=== PATIENT | female | born 1975 | race American Indian/Alaskan Native ===

== ENCOUNTER 2019-10-25 08:55 | Emergency (ER) | payer MEDICARE ==
[2019-10-25 09:15] VITALS: BP 179/90
== END 2019-10-25 13:38 | disposition left against medical advice (07) ==
LOC: ED 08:55
DX: M54.2 Cervicalgia (principal); Z53.21 Procedure and treatment not carried out due to patient leaving prior to being seen by health care provider

== ENCOUNTER 2021-12-12 20:51 | Inpatient (IN) | payer MEDICARE ==
[2021-12-12] MEDS ORDERED: PANTOPRAZOLE 40 MG INJ IV ONE (22:55)
[2021-12-12] MEDS ORDERED: METOCLOPRAMIDE 10 MG/2 ML INJ IV ONE (22:55)
[2021-12-12] MEDS ORDERED: LACTATED RINGERS 1,000 ML IV ONE (22:55)
--- NOTE | 2021-12-12 22:56 | Emergency Department Report ---
ED General Adult HPI - General Chief complaint: Hyperglycemia Stated complaint: NAUSEA/VOMITING PUI?: No Time Seen by Provider: 12/12/21 22:48 Source: patient, EMS ( EMS documentation not available at time of chart dictat ion ), RN notes reviewed Mode of arrival: Stretcher Limitations: Physical Limitation - History of Present Illness Initial comments: The patient was evaluated in the emergency department for symptoms described in the history of present illness. He/she was evaluated in the context of the global COVID-19 pandemic, which necessitated consideration that the patient might be at risk for infection with the virus that causes COVID-19. Institutional protocols and algorithms that pertain to the evaluation of pat ients at risk for COVID-19 are in a state of rapid change based on information released by regulatory bodies including the CDC and federal and state organizations. These policies and algorithms were followed during the patient's care in the emergency department. Please note that these policies, procedures and recommendations changed on a rapid basis. The patient is a 46-year-old female who reports that she is not , who reports a history of diabetes, hypertension, high cholesterol, recent hemoglobin A1c of 11, down from 13. Also reports 20 pound weight loss. Presents to the ER today with a complaint of feeling dehydrated, lethargic, and weak, associate with nausea and vomiting. Denies physical pain. No dysuria. No cough. Positive heartburn. Reports that she does not have a formal diagnosis of gastroparesis that she is aware of. Reports that she last felt like this a few years ago. Symptoms constant for the past 4 days -: Gradual, days(s) Consistency: constant Improves with: none Worsens with: eating - Related Data Allergies Allergy/AdvReac Type Severity Reaction Status Date / Time naproxen Allergy Vomiting Verified 10/25/19 09:09 pecan nut Allergy Swelling Verified 10/25/19 09:09 Penicillins Allergy Unknown Verified 10/25/19 09:09 ED Review of Systems ROS: Stated complaint: NAUSEA/VOMITING Other details as noted in HPI Constitutional: malaise, weakness Eyes: denies: eye discharge ENT: denies: epistaxis Respiratory: denies: cough Cardiovascular: denies: syncope Gastrointestinal: nausea, vomiting. denies: diarrhea Genitourinary: denies: dysuria Neurological: weakness Hematological/Lymphatic: denies: easy bleeding ED Past Medical Hx - Past Medical History Previous Medical History?: Yes Hx Hypertension: Yes Hx Diabetes: Yes Additional medical history: High Cholesterol - Surgical History Past Surgical History?: Yes Hx Cholecystectomy: Yes Additional Surgical History: x 2. oral surgery - Social History Smoking Status: Current Every Day Smoker Substance Use Type: Marijuana ED Physical Exam - General Limitations: Physical Limitation General appearance: alert, in no apparent distress - Head Head exam: Present: atraumatic, normocephalic - Eye Eye exam: Present: normal appearance, EOMI. Absent: nystagmus - ENT ENT exam: Present: normal exam, normal orophraynx, mucous membranes dry, normal external ear exam - Neck Neck exam: Present: normal inspection, full ROM. Absent: tenderness, m eningismus - Respiratory Respiratory exam: Present: normal lung sounds bilaterally, decreased breath sounds. Absent: respiratory distress, wheezes, rales, rhonchi, stridor - Cardiovascular Cardiovascular Exam: Present: normal rhythm, tachycardia, normal heart sounds. Absent: bradycardia, irregular rhythm, systolic murmur, diastolic murmur, rubs, gallop - GI/Abdominal GI/Abdominal exam: Present: soft. Absent: distended, tenderness, guarding, rebound, rigid, pulsatile mass - Extremities Exam Extremities exam: Present: normal inspection, full ROM, other (2+ pulses noted in the bilateral upper and lower extremities. There is no palpable cord. negative Homans sign. Muscular compartments are soft. The pelvis is stable.). Absent: pedal edema, calf tenderness - Back Exam Back exam: Present: normal inspection. Absent: tenderness, CVA tenderness (R), CVA tenderness (L), paraspinal tenderness, vertebral tenderness - Neurological Exam Neurological exam: Present: alert, oriented X3, other (No facial droop. Tongue midline. Extraocular movements intact bilaterally. Facial sensation intact to light touch in V1, V2, V3 distribution bilaterally. 5 and a 5 strength in 4 extremities. Sensation intact to light touch in 4 extremities.). Absent: motor sensory deficit - Psychiatric Psychiatric exam: Present: anxious - Skin Skin exam: Present: warm, dry, intact, normal color. Absent: rash ED Course Vital Signs 12/12/21 12/13/21 21:43 01:02 Temperature 98 F Pulse Rate 128 H Respiratory 20 Rate Blood Pressure 135/95 O2 Sat by Pulse 97 Oximetry O2 Sat by Pulse 99 Oximetry [ Digit-Finger] - Consultations Consultation #1: 12/13/21 01:02 Discussed history, physical, laboratory studies and clinical impression with critical care physician, Dr. Jiménez, who authorizes placement into the intensive care unit. His group will follow in consultation if required and the patient's anion gap not resolved. - Pulse Oximetry Interpretation Digit-Finger Initial Pulse Oximetry Readin O2 Sat by Pulse Oximetry: 99 Actions Taken: none ED Medical Decision Making - Lab Data Result diagrams: 12/12/21 23:03 12/12/21 23:03 Vital Signs 12/12/21 21:43 Temperature 98 F Pulse Rate 128 H Respiratory 20 Rate Blood Pressure 135/95 O2 Sat by Pulse 97 Oximetry Lab Results 12/12/21 12/12/21 12/12/21 Range/Units 23:03 23:03 23:03 WBC 16.1 H (4.5-11.0) K/mm3 RBC 5.38 H (3.65-5.03) M/mm3 Hgb 14.7 H (10.1-14.3) gm/dl Hct 43.5 H (30.3-42.9) % MCV 81 (79-97) fl MCH 27 L (28-32) pg MCHC 34 (30-34) % RDW 16.2 H (13.2-15.2) % Plt Count 703 H (140-440) K/mm3 Lymph % (Auto) 6.5 L (13.4-35.0) % [place] % (Auto) 6.1 (0.0-7.3) % Eos % (Auto) 0.1 (0.0-4.3) % Baso % (Auto) 0.5 (0.0-1.8) % Lymph # (Auto) 1.0 L (1.2-5.4) K/mm3 [place] # (Auto) 1.0 H (0.0-0.8) K/mm3 Eos # (Auto) 0.0 (0.0-0.4) K/mm3 Baso # (Auto) 0.1 (0.0-0.1) K/mm3 Seg Neutrophils % 86.8 H (40.0-70.0) % Seg Neutrophils # 14.0 H (1.8-7.7) K/mm3 VBG pH (7.320-7.420) Sodium 132 L (137-145) mmol/L Potassium 3.5 L (3.6-5.0) mmol/L Chloride 88.1 L (98-107) mmol/L Carbon Dioxide 17 L (22-30) mmol/L Anion Gap 30 mmol/L BUN 16 (7-17) mg/dL Creatinine 0.7 (0.6-1.2) mg/dL Estimated GFR > 60 ml/min BUN/Creatinine Ratio 23 % Glucose 446 H (65-100) mg/dL Calcium 10.1 (8.4-10.2) mg/dL Magnesium 2.40 H (1.7-2.3) mg/dL Total Bilirubin 0.50 (0.1-1.2) mg/dL AST 7 (5-40) units/L ALT 9 (7-56) units/L Alkaline Phosphatase 81 (35-129) units/L Total Creatine Kinase 25 L (30-135) units/L Troponin T < 0.010 (0.00-0.029) ng/mL Total Protein 9.2 H (6.3-8.2) g/dL Albumin 4.6 (3.9-5) g/dL Albumin/Globulin Ratio 1.0 % HCG, Quant (0-4) mIU/mL 12/12/21 12/12/21 Range/Units 23:03 23:03 WBC (4.5-11.0) K/mm3 RBC (3.65-5.03) M/mm3 Hgb (10.1-14.3) gm/dl Hct (30.3-42.9) % MCV (79-97) fl MCH (28-32) pg MCHC (30-34) % RDW (13.2-15.2) % Plt Count (140-440) K/mm3 Lymph % (Auto) (13.4-35.0) % [place] % (Auto) (0.0-7.3) % Eos % (Auto) (0.0-4.3) % Baso % (Auto) (0.0-1.8) % Lymph # (Auto) (1.2-5.4) K/mm3 [place] # (Auto) (0.0-0.8) K/mm3 Eos # (Auto) (0.0-0.4) K/mm3 Baso # (Auto) (0.0-0.1) K/mm3 Seg Neutrophils % (40.0-70.0) % Seg Neutrophils # (1.8-7.7) K/mm3 VBG pH 7.423 H (7.320-7.420) Sodium (137-145) mmol/L Potassium (3.6-5.0) mmol/L Chloride (98-107) mmol/L Carbon Dioxide (22-30) mmol/L Anion Gap mmol/L BUN (7-17) mg/dL Creatinine (0.6-1.2) mg/dL Estimated GFR ml/min BUN/Creatinine Ratio % Glucose (65-100) mg/dL Calcium (8.4-10.2) mg/dL Magnesium (1.7-2.3) mg/dL Total Bilirubin (0.1-1.2) mg/dL AST (5-40) units/L ALT (7-56) units/L Alkaline Phosphatase (35-129) units/L Total Creatine Kinase (30-135) units/L Troponin T (0.00-0.029) ng/mL Total Protein (6.3-8.2) g/dL Albumin (3.9-5) g/dL Albumin/Globulin Ratio % HCG, Quant < 2 (0-4) mIU/mL - EKG Data -: EKG Interpreted by Md EKG shows normal: sinus rhythm Rate: tachycardia - EKG Data 12/13/21 00:49 The EKG is interpreted at 12: 19 Sinus rhythm, tachycardia, rate 116 bpm. Normal axis, normal P wave axis, QTC 4 5 0 ms. This is an abnormal EKG. This is not a STEMI. - Radiology Data Radiology results: pending, report reviewed, image reviewed CHEST 1 VIEW INDICATION: n/v weak heartburn. COMPARISON: None. FINDINGS: Support devices: None. Heart: Normal. Lungs/Pleura: There is fullness in the left hilum. Lungs are clear. No pleural abnormality. IMPRESSION: 1. Fullness in the left hilum could be due to granulomatous lymph nodes but is nonspecific. CT would be useful to better characterize this. Signer Name: Aaron Olguin MD Signed: 12/13/2021 12:13 AM Workstation Name: [email or web address] ([email or web address] - Medical Decision Making Differential diagnosis, include but not limited to: GERD, gastritis, hiatal hernia, pneumonia, diabetic ketoacidosis, hyperosmolar state, gastroparesis, urinary tract infection Assessment and plan 46-year-old female with tachycardia, nausea, vomiting, cramping, malaise and fatigue, associated with hyperglycemia, and metabolic acidosis. Venous pH not a cidotic, however, given combination of tachycardia, clinical history and symptoms, metabolic acidosis and hyperglycemia, we will treat this patient as if she had diabetic ketoacidosis. Start IV fluids, Protonix, insulin push, insulin drip, obtain chest x-ray, urinalysis, and admit patient to the intensive care unit. Patient is agreeable to this plan of care. Have placed a page to critical care physician, Dr. Jiménez, awaiting callback. Hospital physician, Dr. Guidry to admit to [facility] Critical care attestation.: If time is entered above; I have spent that time in minutes in the direct care of this critically ill patient, excluding procedure time. ED Disposition Clinical Impression: Diabetic ketoacidosis Disposition: ADMITTED INPATIENT Is pt being admited?: Yes Does the pt Need Aspirin: No Condition: Serious Instructions: Diabetic Ketoacidosis (ED) Referrals: YFN REYES MD [Primary Care Provider] - 3-5 Days
[2021-12-12 23:32] LABS: Basophils # (Auto) 0.1 K/mm3 (0.0-0.1); Basophils % (Auto) 0.5 % (0.0-1.8); Eosinophils % (Auto) 0.1 % (0.0-4.3); Hematocrit 43.5 % (30.3-42.9); Hemoglobin 14.7 gm/dl (10.1-14.3); Lymphocytes % (Auto) 6.5 % (13.4-35.0); Mean Corpuscular HGB Conc 34 % (30-34); Mean Corpuscular Volume 81 fl (79-97); Monocytes % (Auto) 6.1 % (0.0-7.3); Platelet Count 703 K/mm3 (140-440); Red Blood Count 5.38 M/mm3 (3.65-5.03); Red Cell Distribution Width 16.2 % (13.2-15.2)
[2021-12-13 00:05] LABS: Alanine Aminotransferase 9 units/L (7-56); Albumin 4.6 g/dL (3.9-5); BUN/Creatinine Ratio 23; Blood Urea Nitrogen 16 mg/dL (7-17); Calcium 10.1 mg/dL (8.4-10.2); Hemolysis Index 17
[2021-12-13] MEDS ORDERED: INSULIN REGULAR, HUMAN 100 UNITS/1 ML IV ONE (00:39)
[2021-12-13] MEDS ORDERED: DEXTROSE 50% IN WATER (25GM) 50 ML SYRINGE IV PRN ×2 (00:41→02:05)
--- NOTE | 2021-12-13 01:17 | XRay Report ---
CHEST 1 VIEW INDICATION: n/v weak heartburn. COMPARISON: None. FINDINGS: Support devices: None. Heart: Normal. Lungs/Pleura: There is fullness in the left hilum. Lungs are clear. No pleural abnormality. IMPRESSION: 1. Fullness in the left hilum could be due to granulomatous lymph nodes but is nonspecific. CT would be useful to better characterize this. Signer Name: Aaron Olguin MD Signed: 12/13/2021 1:13 AM Workstation Name: [email or web address]
[2021-12-13 01:29] LABS: BUN/Creatinine Ratio 20; Blood Urea Nitrogen 16 mg/dL (7-17); Calcium 9.8 mg/dL (8.4-10.2); Hemolysis Index 481
[2021-12-13] MEDS ORDERED: HYDROmorphone 1 MG/1 ML INJ IV PRN (02:05)
[2021-12-13] MEDS ORDERED: ALBUTEROL 2.5 MG/3 ML NEBU IH PRN (02:05)
[2021-12-13] MEDS ORDERED: ACETAMINOPHEN 325 MG TAB PO PRN (02:05)
[2021-12-13] MEDS: INSULIN REGULAR, HUMAN 100 UNITS in SODIUM CHLORIDE 0.9% 99 ML IV SCH ×2 (02:10→21:55)
--- NOTE | 2021-12-13 02:12 | History and Physical Report ---
History of Present Illness Date of examination: 12/13/21 Date of admission: 12/13/21 Chief complaint: Hyperglycemia Nausea vomiting History of present illness: 46-year-old female with history of diabetes, hypertension, high cholesterol, recent hemoglobin A1c of 11, down from 13. Also reports 20 pound weight loss. Presents to the ER today with a complaint of feeling dehydrated, lethargic, and weak, associate with nausea and vomiting. Denies physical pain. No dysuria. No cough. Positive heartburn. Reports that she does not have a formal diagnosis of gastroparesis that she is aware of. Reports that she last felt like this a few years ago. In the emergency room patient is found to have blood glucose of 446 bicarb of 17 and anion gap of 30 BUN 16 creatinine 0.7, WBC of 16.1.'s were going to admit the patient to critical care unit we will put the patient on IV fluid insulin drip will consult critical care for evaluation Past History Past Medical History: diabetes, hypertension, hyperlipidemia Medications and Allergies Allergies Allergy/AdvReac Type Severity Reaction Status Date / Time naproxen Allergy Vomiting Verified 10/25/19 09:09 pecan nut Allergy Swelling Verified 10/25/19 09:09 Penicillins Allergy Unknown Verified 10/25/19 09:09 Active Meds: Active Medications Dextrose (Dextrose 50% In Water (25gm) 50 Ml Syringe) 0 ml IV Q30MIN PRN; Protocol PRN Reason: Hypoglycemia Insulin Human Regular 100 (units/ Sodium Chloride) 100 mls @ 1 mls/hr IV TITR DONA; Protocol Potassium Chloride/Dextrose/Sod Cl (D5w/0.45% Nacl/Kcl 20 Meq) 20 meq in 1,000 mls @ 125 mls/hr IV DIRECT DONA Sodium Chloride (Sodium Chloride 0.9% 10 Ml Flush Syringe) 10 ml IV PRN PRN PRN Reason: LINE FLUSH Review of Systems Constitutional: fatigue, weakness, malaise, lethargy Cardiovascular: lightheadedness Gastrointestinal: abdominal pain, nausea, vomiting Exam - Constitutional Vitals: Temp Pulse Resp BP Pulse Ox 98 F 128 H 20 135/95 99 12/12/21 21:43 12/12/21 21:43 12/12/21 21:43 12/12/21 21:43 12/13/21 01:32 General appearance: Present: mild distress, well-nourished - EENT Eyes: Present: PERRL ENT: hearing intact, clear oral mucosa - Neck Neck: Present: supple, normal ROM - Respiratory Respiratory effort: normal Respiratory: bilateral: diminished - Cardiovascular Heart Sounds: Present: S1 & S2. Absent: rub, click - Extremities Extremities: pulses symmetrical, No edema Peripheral Pulses: within normal limits - Abdominal General gastrointestinal: Present: soft, non-tender, non-distended, normal bowel sounds Female genitourinary: Present: normal - Integumentary Integumentary: Present: clear, warm, dry - Musculoskeletal Musculoskeletal: gait normal, strength equal bilaterally - Psychiatric Psychiatric: appropriate mood/affect, intact judgment & insight - Neurologic Neurologic: CNII-XII intact, moves all extremities HEART Score - HEART Score Troponin: Troponin T < 0.010 ng/mL (0.00-0.029) 12/12/21 23:03 Results - Labs CBC & Chem 7: 12/12/21 23:03 12/13/21 00:57 Labs: Laboratory Last Values WBC 16.1 K/mm3 (4.5-11.0) H 12/12/21 23:03 RBC 5.38 M/mm3 (3.65-5.03) H 12/12/21 23:03 Hgb 14.7 gm/dl (10.1-14.3) H 12/12/21 23:03 Hct 43.5 % (30.3-42.9) H 12/12/21 23:03 MCV 81 fl (79-97) 12/12/21 23:03 MCH 27 pg (28-32) L 12/12/21 23:03 MCHC 34 % (30-34) 12/12/21 23:03 RDW 16.2 % (13.2-15.2) H 12/12/21 23:03 Plt Count 703 K/mm3 (140-440) H 12/12/21 23:03 Lymph % (Auto) 6.5 % (13.4-35.0) L 12/12/21 23:03 Bartholomew % (Auto) 6.1 % (0.0-7.3) 12/12/21 23:03 Eos % (Auto) 0.1 % (0.0-4.3) 12/12/21 23:03 Baso % (Auto) 0.5 % (0.0-1.8) 12/12/21 23:03 Lymph # (Auto) 1.0 K/mm3 (1.2-5.4) L 12/12/21 23:03 Bartholomew # (Auto) 1.0 K/mm3 (0.0-0.8) H 12/12/21 23:03 Eos # (Auto) 0.0 K/mm3 (0.0-0.4) 12/12/21 23:03 Baso # (Auto) 0.1 K/mm3 (0.0-0.1) 12/12/21 23:03 Seg Neutrophils % 86.8 % (40.0-70.0) H 12/12/21 23:03 Seg Neutrophils # 14.0 K/mm3 (1.8-7.7) H 12/12/21 23:03 PT 14.3 Sec. (12.2-14.9) 12/13/21 00:15 INR 1.00 (0.87-1.13) 12/13/21 00:15 VBG pH 7.423 (7.320-7.420) H 12/12/21 23:03 Sodium 130 mmol/L (137-145) L 12/13/21 00:57 Potassium 4.0 mmol/L (3.6-5.0) 12/13/21 00:57 Chloride 88.4 mmol/L (98-107) L 12/13/21 00:57 Carbon Dioxide 15 mmol/L (22-30) L 12/13/21 00:57 Anion Gap 31 mmol/L 12/13/21 00:57 BUN 16 mg/dL (7-17) 12/13/21 00:57 Creatinine 0.8 mg/dL (0.6-1.2) 12/13/21 00:57 Estimated GFR > 60 ml/min 12/13/21 00:57 BUN/Creatinine Ratio 20 % 12/13/21 00:57 Glucose 430 mg/dL (65-100) H 12/13/21 00:57 POC Glucose 366 mg/dL (70-105) H 12/13/21 01:49 Calcium 9.8 mg/dL (8.4-10.2) 12/13/21 00:57 Phosphorus 3.80 mg/dL (2.5-4.5) 12/13/21 00:57 Magnesium 2.50 mg/dL (1.7-2.3) H 12/13/21 00:57 Total Bilirubin 0.50 mg/dL (0.1-1.2) 12/12/21 23:03 AST 7 units/L (5-40) 12/12/21 23:03 ALT 9 units/L (7-56) 12/12/21 23:03 Alkaline Phosphatase 81 units/L (35-129) 12/12/21 23:03 Total Creatine Kinase 25 units/L (30-135) L 12/12/21 23:03 Troponin T < 0.010 ng/mL (0.00-0.029) 12/12/21 23:03 Total Protein 9.2 g/dL (6.3-8.2) H 12/12/21 23:03 Albumin 4.6 g/dL (3.9-5) 12/12/21 23:03 Albumin/Globulin Ratio 1.0 % 12/12/21 23:03 HCG, Quant < 2 mIU/mL (0-4) 12/12/21 23:03 - Imaging and Cardiology Chest x-ray: report reviewed Assessment and Plan VTE prophylaxis?: Chemical Plan of care discussed with patient/family: Yes - Patient Problems (1) Diabetic ketoacidosis Current Visit: Yes Status: Acute Plan to address problem: Admit the patient to the ICU. NPO. IV fluid. Insulin drip as per protocol. We do the serial BMP. Will consult critical care evaluation (2) Leukocytosis Current Visit: Yes Status: Acute Plan to address problem: Rocephin 2 g IV daily prophylactically. Recheck CBC in the morning (3) Nausea & vomiting Current Visit: Yes Status: Acute Plan to address problem: NPO. IV fluid. Pepcid 20 mg IV every 12 hours. Zofran 4 mg IV every 6 hours as needed (4) Hypertension Current Visit: Yes Status: Acute Plan to address problem: Hydralazine 10 mg IV every 6 hours as needed. We continue the home medication (5) Hyperlipidemia Current Visit: Yes Status: Acute Plan to address problem: Stable. We will continue the home medication. Low-fat diet (6) DVT prophylaxis Current Visit: Yes Status: Acute Plan to address problem: Heparin 5000 units subcu every 8 hours for DVT prophylaxis. Pepcid 20 mg IV every 12 hours for GI prophylaxis. Patient is a full code
[2021-12-13] MEDS ORDERED: DEXTROSE 10% *Hypoglycemia IV PRN (02:14)
[2021-12-13] MEDS ORDERED: ROCURONIUM 50 MG/5 ML INJ IV ONE (02:42)
[2021-12-13] MEDS ORDERED: ETOMIDATE 20 MG/10 ML INJ IV ONE (02:42)
[2021-12-13 02:57] LABS: Blood Urea Nitrogen 13 mg/dL (7-17); Calcium 9.4 mg/dL (8.4-10.2); Hemolysis Index 4
[2021-12-13 03:00] LABS: BUN/Creatinine Ratio 19
[2021-12-13] MEDS ORDERED: INSULIN REGULAR, HUMAN 100 UNITS in SODIUM CHLORIDE 0.9% 99 ML IV SCH (03:00)
[2021-12-13] MEDS ORDERED: cefTRIAXone/NS 2 GM/100 ML 2 GM/100 ML BAG IV SCH (03:00)
[2021-12-13] MEDS ORDERED: dilTIAZem 25 MG/5 ML INJ IV ONE (03:22)
[2021-12-13] MEDS: D5W/0.45% NACL/KCL 20 MEQ 20 MEQ/1,000 ML BAG IV SCH ×2 (03:37→20:18)
[2021-12-13] MEDS: ONDANSETRON 4 MG/2 ML INJ IV PRN ×4 (04:39→21:42)
[2021-12-13 05:15] LABS: Blood Urea Nitrogen 13 mg/dL (7-17); Calcium 9.4 mg/dL (8.4-10.2); Hemolysis Index 9
[2021-12-13 05:18] LABS: BUN/Creatinine Ratio 22
[2021-12-13] MEDS: IPRATROPIUM/ALBUTEROL SULFATE 3 ML AMPUL.NEB IH SCH (07:29)
--- NOTE | 2021-12-13 09:32 | Electrocardiograph Report ---
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
[2021-12-13] MEDS: FAMOTIDINE 20 MG/2 ML INJ IV SCH ×2 (09:39→21:42)
[2021-12-13] MEDS: POTASSIUM CHLORIDE 10 MEQ 10 MEQ/100 ML BAG IV SCH ×4 (09:39→13:12)
[2021-12-13] MEDS: MORPHINE 2 MG/1 ML INJ IV PRN ×2 (09:40→13:14)
[2021-12-13] MEDS ORDERED: POTASSIUM PHOSPHATE 30 MMOL in SODIUM CHLORIDE 0.9% 500 ML 500 ML IV ONE (10:00)
[2021-12-13] MEDS ORDERED: HEPARIN 5,000 UNIT/1 ML VIAL SUB-Q SCH (10:00)
--- NOTE | 2021-12-13 10:58 | Event Note ---
<NYA ROSENBERG - Last Filed: 12/13/21 12:01> Date: 12/13/21 This is a 46-year-old female with DM, HTN, HLD who presented to emergency department on 12/12 with a reported 20 pound weight loss, dehydration, lethargy, weakness associated with nausea and vomiting and heartburn over the past 4 days. Patient presented with tachycardia and leukocytosis meeting SIRS criteria. Work-up in the emergency department revealed hyponatremia, hypokalemia, hypochloremia, metabolic acidosis, hyperglycemia, leukocytosis, hypophosphatemia, hemoconcentration and elevated anion gap. Patient was service with DKA initiated on insulin drip and [facility] was consulted. 12/13: Patient still persists with hyponatremia, anion gap metabolic acidosis, and hypokalemia. Her phosphorus are repleted yesterday and will be repleted today with K-Phos and her potassium will be repleted with potassium. Patient will be given additional 2 L LR bolus and as needed labetalol ordered for hypertension. Assessment and plan This is a 46-year-old female with DM, HTN, HLD admitted with DKA Neuro: Acute metabolic encephalopathy -Avoid delirium -Reorientation as needed -Maintain sleep-wake cycle -As needed analgesia Cardiac: ST, h/o HTN -Blood pressure monitor per protocol -As needed labetalol -Resume home antihypertensive regiment was obtained Respiratory: NAD -Pulmonary hygiene -Supplemental oxygen as needed -SPO2 monitoring GI: ? Gastroparesis -24 hours +20 -PPI -Add BR when not n.p.o. -As needed antiemetics : Hyponatremia, hypokalemia, hypochloremia, high anion gap metabolic acidosis, hypophosphatemia -Strict intake and output -Renally dose medications -Avoid nephrotoxic medications -Replete electrolytes -Trend BMP ID: SIRS -Presented with leukocytosis and tachycardia -CXR read with fullness in the left hilum could be due to granulomatous lymph nodes but is nonspecific -Monitor WBC and temperature curve -May dc abx today -currently on ceftriaxone -[facility] recommends : CT of chest can be obtained as outpatient, no evidence of acute lung disease and if abx therapy is for this, suggest stopping Endo: DKA, h/o DM -DKA protocol -Insulin drip -We will give 2 L LR today -IV fluids per protocol -Avoid hypoglycemia -Accu-Cheks per protocol -We will transition to long-acting insulin and SSI when appropriate Heme: Leukocytosis, ? Hemoconcentration, thrombocytosis -Trend CBC -Transfuse hemoglobin less than 7 -Monitor for signs of bleeding -SCDs to BLE while in bed -Lovenox subcu The high probability of a clinically significant, sudden or life threatening deterioration of the [endo] system(s) required my full and direct attention, intervention and personal management. The aggregate critical care time was [60] minutes. This time is in addition to time spent performing reported procedures but includes the following: [x] Data Review and interpretation [x] Patient assessment and monitoring of vital signs [x] Documentation [x] Medication orders and management <BETI LOCKWOOD - Last Filed: 12/14/21 07:17> I saw and evaluated the patient. I agree with the findings and the plan of care as documented in the Nurse Practitioner's~note, with the following corrections and additions.
[2021-12-13] MEDS ORDERED: LACTATED RINGERS 1,000 ML IV ONE (11:00)
[2021-12-13] MEDS ORDERED: LACTATED RINGERS 1000 ML IV SOLN IV SCH (11:00)
[2021-12-13 11:06] LABS: Blood Urea Nitrogen 10 mg/dL (7-17); Calcium 9.9 mg/dL (8.4-10.2); Hemolysis Index 2
[2021-12-13 11:07] LABS: BUN/Creatinine Ratio 20
--- NOTE | 2021-12-13 11:23 | Consultation ---
History of Present Illness - Reason for Consult Consult date: 12/13/21 DKA - History of Present Illness 46 y/o overweight female with known diabetes, admitted with DKA. Patient had been trying holostic treatment with Apple Cider Vinegar and coconut water. Per patient lost 20lbs in 2 months and dropped her A1c to 11 from 13. She had had nausea and vomiting of pure liquid for the last 4 days prior to admit and per patient, she would not have come yesterday if they did not make her. Remainder is negative. Past History Past Medical History: diabetes, hypertension, hyperlipidemia Medications and Allergies Allergies Allergy/AdvReac Type Severity Reaction Status Date / Time naproxen Allergy Vomiting Verified 10/25/19 09:09 pecan nut Allergy Swelling Verified 10/25/19 09:09 Penicillins Allergy Unknown Verified 10/25/19 09:09 Active Meds: Active Medications Acetaminophen (Acetaminophen 325 Mg Tab) 650 mg PO Q4H PRN PRN Reason: Pain MILD(1-3)/Fever >100.5/GASTELUM Albuterol (Albuterol 2.5 Mg/3 Ml Nebu) 2.5 mg IH Q3HRT PRN PRN Reason: Shortness Of Breath Albuterol/Ipratropium (Ipratropium/Albuterol Sulfate 3 Ml Ampul.Neb) 1 ampul IH Q6HRT [facility] Last Admin: 12/13/21 07:29 Dose: 1 ampul Dextrose (Dextrose 10% *Hypoglycemia) 0 ml IV PRN PRN PRN Reason: Hypoglycemia Enoxaparin Sodium (Enoxaparin 40 Mg/0.4 Ml Inj) 40 mg SUB-Q QDAY@2200 [facility]; Protocol Famotidine (Famotidine 20 Mg/2 Ml Inj) 20 mg IV BID [facility] Last Admin: 12/13/21 09:39 Dose: 20 mg Hydromorphone HCl (Hydromorphone 1 Mg/1 Ml Inj) 0.5 mg IV Q3H PRN PRN Reason: Pain , Severe (7-10) Insulin Human Regular 100 (units/ Sodium Chloride) 100 mls @ 1 mls/hr IV TITR [facility]; Protocol Last Titration: 12/13/21 11:10 Dose: 2.5 units/hr, 2.5 mls/hr Potassium Chloride/Dextrose/Sod Cl (D5w/0.45% Nacl/Kcl 20 Meq) 20 meq in 1,000 mls @ 125 mls/hr IV DIRECT [facility] Last Admin: 12/13/21 03:37 Dose: 125 mls/hr Ceftriaxone Sodium (Rocephin/Ns 2 Gm/100 Ml) 2 gm in 100 mls @ 200 mls/hr IV Q24H [facility]; Protocol Last Admin: 12/13/21 03:38 Dose: 200 mls/hr Potassium Phosphate 30 mmol/ (Sodium Chloride) 510 mls @ 85 mls/hr IV ONCE ONE Stop: 12/13/21 15:59 Last Admin: 12/13/21 10:45 Dose: 85 mls/hr Potassium Chloride (Kcl 10meq/100ml) 10 meq in 100 mls @ 100 mls/hr IV Q1H [facility] Stop: 12/13/21 13:59 Last Admin: 12/13/21 11:14 Dose: 100 mls/hr Lactated Ringer's (Lactated Ringers) 1,000 mls @ 999 mls/hr IV BOLUS ONE Stop: 12/13/21 12:00 Last Admin: 12/13/21 11:14 Dose: 999 mls/hr Labetalol HCl (Labetalol 20 Mg/4 Ml Inj) 10 mg IV Q4HR PRN PRN Reason: Hypertension Last Admin: 12/13/21 09:39 Dose: 10 mg Morphine Sulfate (Morphine 2 Mg/1 Ml Inj) 2 mg IV Q4H PRN PRN Reason: Pain, Moderate (4-6) Last Admin: 12/13/21 09:40 Dose: 2 mg Ondansetron HCl (Ondansetron 4 Mg/2 Ml Inj) 4 mg IV Q8H PRN PRN Reason: Nausea And Vomiting Last Admin: 12/13/21 09:39 Dose: 4 mg Sodium Chloride (Sodium Chloride 0.9% 10 Ml Flush Syringe) 10 ml IV BID [facility] Last Admin: 12/13/21 09:39 Dose: 10 ml Sodium Chloride (Sodium Chloride 0.9% 10 Ml Flush Syringe) 10 ml IV PRN PRN PRN Reason: LINE FLUSH Review of Systems All systems: negative Exam - Constitutional Vitals: Temp Pulse Resp BP Pulse Ox 98.1 F 108 H 14 187/106 97 12/13/21 09:00 12/13/21 09:39 12/13/21 08:01 12/13/21 09:39 12/13/21 08:01 General appearance: Present: no acute distress, well-nourished, other (over weight.) - EENT Eyes: Present: PERRL (wearing corrective lens), EOM intact ENT: hearing intact - Neck Neck: Present: supple, normal ROM - Respiratory Respiratory effort: normal Respiratory: bilateral: CTA - Cardiovascular Rhythm: regular Heart Sounds: Present: S1 & S2 - Abdominal General gastrointestinal: Present: soft, non-tender - Rectal Rectal Exam: deferred - Musculoskeletal Musculoskeletal: strength equal bilaterally Results - Labs CBC & Chem 7: 12/12/21 23:03 12/13/21 09:43 Labs: Abnormal lab results 12/12/21 12/12/21 12/12/21 Range/Units 23:03 23:03 23:03 WBC 16.1 H (4.5-11.0) K/mm3 RBC 5.38 H (3.65-5.03) M/mm3 Hgb 14.7 H (10.1-14.3) gm/dl Hct 43.5 H (30.3-42.9) % MCH 27 L (28-32) pg RDW 16.2 H (13.2-15.2) % Plt Count 703 H (140-440) K/mm3 Lymph % (Auto) 6.5 L (13.4-35.0) % Lymph # (Auto) 1.0 L (1.2-5.4) K/mm3 [place] # (Auto) 1.0 H (0.0-0.8) K/mm3 Seg Neutrophils % 86.8 H (40.0-70.0) % Seg Neutrophils # 14.0 H (1.8-7.7) K/mm3 VBG pH (7.320-7.420) Sodium 132 L (137-145) mmol/L Potassium 3.5 L (3.6-5.0) mmol/L Chloride 88.1 L (98-107) mmol/L Carbon Dioxide 17 L (22-30) mmol/L Creatinine (0.6-1.2) mg/dL Glucose 446 H (65-100) mg/dL POC Glucose (70-105) mg/dL Hemoglobin A1c (4-6) % Phosphorus (2.5-4.5) mg/dL Magnesium 2.40 H (1.7-2.3) mg/dL Total Creatine Kinase 25 L (30-135) units/L Total Protein 9.2 H (6.3-8.2) g/dL 12/12/21 12/12/21 12/13/21 Range/Units 23:03 23:03 00:57 WBC (4.5-11.0) K/mm3 RBC (3.65-5.03) M/mm3 Hgb (10.1-14.3) gm/dl Hct (30.3-42.9) % MCH (28-32) pg RDW (13.2-15.2) % Plt Count (140-440) K/mm3 Lymph % (Auto) (13.4-35.0) % Lymph # (Auto) (1.2-5.4) K/mm3 [place] # (Auto) (0.0-0.8) K/mm3 Seg Neutrophils % (40.0-70.0) % Seg Neutrophils # (1.8-7.7) K/mm3 VBG pH 7.423 H (7.320-7.420) Sodium (137-145) mmol/L Potassium (3.6-5.0) mmol/L Chloride (98-107) mmol/L Carbon Dioxide (22-30) mmol/L Creatinine (0.6-1.2) mg/dL Glucose (65-100) mg/dL POC Glucose (70-105) mg/dL Hemoglobin A1c 12.2 H (4-6) % Phosphorus (2.5-4.5) mg/dL Magnesium 2.50 H (1.7-2.3) mg/dL Total Creatine Kinase (30-135) units/L Total Protein (6.3-8.2) g/dL 12/13/21 12/13/21 12/13/21 Range/Units 00:57 01:49 02:27 WBC (4.5-11.0) K/mm3 RBC (3.65-5.03) M/mm3 Hgb (10.1-14.3) gm/dl Hct (30.3-42.9) % MCH (28-32) pg RDW (13.2-15.2) % Plt Count (140-440) K/mm3 Lymph % (Auto) (13.4-35.0) % Lymph # (Auto) (1.2-5.4) K/mm3 [place] # (Auto) (0.0-0.8) K/mm3 Seg Neutrophils % (40.0-70.0) % Seg Neutrophils # (1.8-7.7) K/mm3 VBG pH (7.320-7.420) Sodium 130 L 134 L (137-145) mmol/L Potassium 3.0 L D (3.6-5.0) mmol/L Chloride 88.4 L 93.9 L (98-107) mmol/L Carbon Dioxide 15 L 16 L (22-30) mmol/L Creatinine (0.6-1.2) mg/dL Glucose 430 H 286 H (65-100) mg/dL POC Glucose 366 H (70-105) mg/dL Hemoglobin A1c (4-6) % Phosphorus (2.5-4.5) mg/dL Magnesium (1.7-2.3) mg/dL Total Creatine Kinase (30-135) units/L Total Protein (6.3-8.2) g/dL 12/13/21 12/13/21 12/13/21 Range/Units 02:27 03:12 04:11 WBC (4.5-11.0) K/mm3 RBC (3.65-5.03) M/mm3 Hgb (10.1-14.3) gm/dl Hct (30.3-42.9) % MCH (28-32) pg RDW (13.2-15.2) % Plt Count (140-440) K/mm3 Lymph % (Auto) (13.4-35.0) % Lymph # (Auto) (1.2-5.4) K/mm3 [place] # (Auto) (0.0-0.8) K/mm3 Seg Neutrophils % (40.0-70.0) % Seg Neutrophils # (1.8-7.7) K/mm3 VBG pH (7.320-7.420) Sodium 136 L (137-145) mmol/L Potassium 3.2 L (3.6-5.0) mmol/L Chloride 97.6 L (98-107) mmol/L Carbon Dioxide 16 L (22-30) mmol/L Creatinine (0.6-1.2) mg/dL Glucose 189 H (65-100) mg/dL POC Glucose 201 H (70-105) mg/dL Hemoglobin A1c (4-6) % Phosphorus 2.10 L D (2.5-4.5) mg/dL Magnesium (1.7-2.3) mg/dL Total Creatine Kinase (30-135) units/L Total Protein (6.3-8.2) g/dL 12/13/21 12/13/21 12/13/21 Range/Units 04:31 05:34 06:32 WBC (4.5-11.0) K/mm3 RBC (3.65-5.03) M/mm3 Hgb (10.1-14.3) gm/dl Hct (30.3-42.9) % MCH (28-32) pg RDW (13.2-15.2) % Plt Count (140-440) K/mm3 Lymph % (Auto) (13.4-35.0) % Lymph # (Auto) (1.2-5.4) K/mm3 [place] # (Auto) (0.0-0.8) K/mm3 Seg Neutrophils % (40.0-70.0) % Seg Neutrophils # (1.8-7.7) K/mm3 VBG pH (7.320-7.420) Sodium (137-145) mmol/L Potassium (3.6-5.0) mmol/L Chloride (98-107) mmol/L Carbon Dioxide (22-30) mmol/L Creatinine (0.6-1.2) mg/dL Glucose (65-100) mg/dL POC Glucose 177 H 209 H 225 H (70-105) mg/dL Hemoglobin A1c (4-6) % Phosphorus (2.5-4.5) mg/dL Magnesium (1.7-2.3) mg/dL Total Creatine Kinase (30-135) units/L Total Protein (6.3-8.2) g/dL 12/13/21 12/13/21 12/13/21 Range/Units 07:58 09:04 09:43 WBC (4.5-11.0) K/mm3 RBC (3.65-5.03) M/mm3 Hgb (10.1-14.3) gm/dl Hct (30.3-42.9) % MCH (28-32) pg RDW (13.2-15.2) % Plt Count (140-440) K/mm3 Lymph % (Auto) (13.4-35.0) % Lymph # (Auto) (1.2-5.4) K/mm3 [place] # (Auto) (0.0-0.8) K/mm3 Seg Neutrophils % (40.0-70.0) % Seg Neutrophils # (1.8-7.7) K/mm3 VBG pH (7.320-7.420) Sodium (137-145) mmol/L Potassium (3.6-5.0) mmol/L Chloride 96.7 L (98-107) mmol/L Carbon Dioxide (22-30) mmol/L Creatinine 0.5 L (0.6-1.2) mg/dL Glucose 186 H (65-100) mg/dL POC Glucose 214 H 198 H (70-105) mg/dL Hemoglobin A1c (4-6) % Phosphorus (2.5-4.5) mg/dL Magnesium (1.7-2.3) mg/dL Total Creatine Kinase (30-135) units/L Total Protein (6.3-8.2) g/dL 12/13/21 12/13/21 Range/Units 10:02 11:10 WBC (4.5-11.0) K/mm3 RBC (3.65-5.03) M/mm3 Hgb (10.1-14.3) gm/dl Hct (30.3-42.9) % MCH (28-32) pg RDW (13.2-15.2) % Plt Count (140-440) K/mm3 Lymph % (Auto) (13.4-35.0) % Lymph # (Auto) (1.2-5.4) K/mm3 [place] # (Auto) (0.0-0.8) K/mm3 Seg Neutrophils % (40.0-70.0) % Seg Neutrophils # (1.8-7.7) K/mm3 VBG pH (7.320-7.420) Sodium (137-145) mmol/L Potassium (3.6-5.0) mmol/L Chloride (98-107) mmol/L Carbon Dioxide (22-30) mmol/L Creatinine (0.6-1.2) mg/dL Glucose (65-100) mg/dL POC Glucose 193 H 171 H (70-105) mg/dL Hemoglobin A1c (4-6) % Phosphorus (2.5-4.5) mg/dL Magnesium (1.7-2.3) mg/dL Total Creatine Kinase (30-135) units/L Total Protein (6.3-8.2) g/dL - Imaging and Cardiology Chest x-ray: image reviewed (left hilar fullness, but otherwise clear) Assessment and Plan 46 y/o female with DKA and abnormal CXR 1. Continue insulin drip until Anion Gap closes. Currently 18. Hopeful at next check, she will be within range to eat 2. Once gap closed, calculate long acting insulin requirements, vs weight based therapy and administer, then turn drip off 2 hours post administration of insulin 3. Continue volume resuscitation as patient is dehydrated 4. long discussion at bedside about need for medical therapy as opposed to solely holistic care. patient in agreement 5. CT of chest can be obtained as outpatient, no evidence of acute lung disease and if abx therapy is for this, suggest stopping Will continue to follow CCT 31 minutes.
[2021-12-13 16:56] LABS: Blood Urea Nitrogen 6 mg/dL (7-17); Hemolysis Index 3
[2021-12-13 17:01] LABS: BUN/Creatinine Ratio 12
[2021-12-13] MEDS: ENOXAPARIN 40 MG/0.4 ML INJ SUB-Q SCH (21:43)
[2021-12-13 23:48] LABS: BUN/Creatinine Ratio 15; Blood Urea Nitrogen 6 mg/dL (7-17); Calcium 8.5 mg/dL (8.4-10.2); Hemolysis Index 10
[2021-12-14 00:54] LABS: Bacteria,Urine 1+ /HPF (Negative); Bilirubin,Urine NEG (Negative); Blood,Urine SM (Negative); Color,Urine Yellow (Yellow); Mucus,Urine 1+ /HPF; Urobilinogen,Urine < 2.0 mg/dL (<2.0)
[2021-12-14 03:03] LABS: Blood Urea Nitrogen 5 mg/dL (7-17); Calcium 8.4 mg/dL (8.4-10.2); Hemolysis Index 6
[2021-12-14 03:13] LABS: BUN/Creatinine Ratio 10
[2021-12-14] MEDS: D5W/0.45% NACL/KCL 20 MEQ 20 MEQ/1,000 ML BAG IV SCH (04:17)
[2021-12-14] MEDS: IPRATROPIUM/ALBUTEROL SULFATE 3 ML AMPUL.NEB IH SCH (07:13)
[2021-12-14] MEDS ORDERED: INSULIN LISPRO 100 UNIT/ML SUB-Q SCH (08:00)
[2021-12-14] MEDS ORDERED: DEXTROSE 50% IN WATER (25GM) 50 ML SYRINGE IV PRN (08:30)
--- NOTE | 2021-12-14 08:36 | Progress Note ---
<NYA ROSENBERG - Last Filed: 12/14/21 11:01> Assessment and Plan Assessment and plan: Assessment and plan This is a 46-year-old female with DM, HTN, HLD admitted with DKA Neuro: Acute metabolic encephalopathy (resolved) -Avoid delirium -Reorientation as needed -Maintain sleep-wake cycle -As needed analgesia Cardiac: h/o HTN -Blood pressure monitor per protocol -As needed labetalol -Resume home antihypertensive regiment was obtained Respiratory: NAD -Pulmonary hygiene -Supplemental oxygen as needed -SPO2 monitoring GI: Obesity -24 hours +1079 -PPI -BR: senna -As needed antiemetics : Hypokalemia -Strict intake and output -Renally dose medications -Avoid nephrotoxic medications -Replete electrolytes -Trend BMP ID: SIRS -Presented with leukocytosis and tachycardia -CXR read with fullness in the left hilum could be due to granulomatous lymph nodes but is nonspecific -Monitor WBC and temperature curve -[facility] recommends : CT of chest can be obtained as outpatient, no evidence of acute lung disease Endo: s/p DKA, h/o DM -s/p Insulin drip -SSI -Long acting insulin (titrate as needed) -Avoid hypoglycemia -Accu-Cheks ACHS Heme: Leukocytosis, ? Hemoconcentration, thrombocytosis -Trend CBC -Transfuse hemoglobin less than 7 -Monitor for signs of bleeding -SCDs to BLE while in bed -Lovenox subcu The high probability of a clinically significant, sudden or life threatening deterioration of the [endo] system(s) required my full and direct attention, intervention and personal management. The aggregate critical care time was [60] minutes. This time is in addition to time spent performing reported procedures but includes the following: [x] Data Review and interpretation [x] Patient assessment and monitoring of vital signs [x] Documentation [x] Medication orders and management Disposition Plan: transfer to floor Total Time Spent with Patient (Minutes): 60 History Interval history: This is a 46-year-old female with DM, HTN, HLD who presented to emergency department on 12/12 with a reported 20 pound weight loss, dehydration, lethargy, weakness associated with nausea and vomiting and heartburn over the past 4 days. Patient presented with tachycardia and leukocytosis meeting SIRS criteria. Work-up in the emergency department revealed hyponatremia, hypokalemia, hypochloremia, metabolic acidosis, hyperglycemia, leukocytosis, hypophosphatemia, hemoconcentration and elevated anion gap. Patient was service with DKA initiated on insulin drip and CCM was consulted. 12/13: Patient still persists with hyponatremia, anion gap metabolic acidosis, and hypokalemia. Her phosphorus are repleted yesterday and will be repleted today with K-Phos and her potassium will be repleted with potassium. Patient will be given additional 2 L LR bolus and as needed labetalol ordered for hypertension. 12/14: AG closed, transitioned to SSI and long acting insulin. CC diet. Transfer to floor. Replete K. Likely DC in the AM Hospitalist Physical - Constitutional Vitals: Temp Pulse Resp BP Pulse Ox 98.2 F 76 10 L 121/57 98 12/14/21 04:00 12/14/21 06:00 12/14/21 06:00 12/14/21 06:00 12/14/21 06:00 General appearance: Present: no acute distress, well-nourished, other (over weight.) - EENT Eyes: Present: PERRL, EOM intact ENT: clear oral mucosa, dentition normal - Neck Neck: Present: normal ROM - Respiratory Respiratory effort: normal Respiratory: bilateral: CTA - Cardiovascular Rhythm: regular Heart Sounds: Present: S1 & S2. Absent: systolic murmur, diastolic murmur - Extremities Extremities: no ischemia, pulses intact, pulses symmetrical, No edema, normal temperature, normal color, Full ROM Peripheral Pulses: within normal limits - Abdominal General gastrointestinal: soft, non-tender, non-distended, normal bowel sounds - Integumentary Integumentary: Present: warm, dry - Psychiatric Psychiatric: cooperative - Neurologic Neurologic: CNII-XII intact, no focal deficits, moves all extremities - Allied Health Allied health notes reviewed: nursing HEART Score - HEART Score Troponin: Troponin T < 0.010 ng/mL (0.00-0.029) 12/12/21 23:03 Results - Labs CBC & Chem 7: 12/12/21 23:03 12/14/21 02:29 Labs: Laboratory Last Values WBC 16.1 K/mm3 (4.5-11.0) H 12/12/21 23:03 RBC 5.38 M/mm3 (3.65-5.03) H 12/12/21 23:03 Hgb 14.7 gm/dl (10.1-14.3) H 12/12/21 23:03 Hct 43.5 % (30.3-42.9) H 12/12/21 23:03 MCV 81 fl (79-97) 12/12/21 23:03 MCH 27 pg (28-32) L 12/12/21 23:03 MCHC 34 % (30-34) 12/12/21 23:03 RDW 16.2 % (13.2-15.2) H 12/12/21 23:03 Plt Count 703 K/mm3 (140-440) H 12/12/21 23:03 Lymph % (Auto) 6.5 % (13.4-35.0) L 12/12/21 23:03 [place] % (Auto) 6.1 % (0.0-7.3) 12/12/21 23:03 Eos % (Auto) 0.1 % (0.0-4.3) 12/12/21 23:03 Baso % (Auto) 0.5 % (0.0-1.8) 12/12/21 23:03 Lymph # (Auto) 1.0 K/mm3 (1.2-5.4) L 12/12/21 23:03 [place] # (Auto) 1.0 K/mm3 (0.0-0.8) H 12/12/21 23:03 Eos # (Auto) 0.0 K/mm3 (0.0-0.4) 12/12/21 23:03 Baso # (Auto) 0.1 K/mm3 (0.0-0.1) 12/12/21 23:03 Seg Neutrophils % 86.8 % (40.0-70.0) H 12/12/21 23:03 Seg Neutrophils # 14.0 K/mm3 (1.8-7.7) H 12/12/21 23:03 PT 14.3 Sec. (12.2-14.9) 12/13/21 00:15 INR 1.00 (0.87-1.13) 12/13/21 00:15 VBG pH 7.423 (7.320-7.420) H 12/12/21 23:03 Sodium 135 mmol/L (137-145) L 12/14/21 02:29 Potassium 3.2 mmol/L (3.6-5.0) L 12/14/21 02:29 Chloride 99.9 mmol/L (98-107) 12/14/21 02:29 Carbon Dioxide 22 mmol/L (22-30) 12/14/21 02:29 Anion Gap 16 mmol/L 12/14/21 02:29 BUN 5 mg/dL (7-17) L 12/14/21 02:29 Creatinine 0.5 mg/dL (0.6-1.2) L 12/14/21 02:29 Estimated GFR > 60 ml/min 12/14/21 02:29 BUN/Creatinine Ratio 10 % 12/14/21 02:29 Glucose 112 mg/dL (65-100) H 12/14/21 02:29 POC Glucose 124 mg/dL (70-105) H 12/14/21 08:27 Hemoglobin A1c 12.2 % (4-6) H 12/12/21 23:03 Calcium 8.4 mg/dL (8.4-10.2) 12/14/21 02:29 Phosphorus 2.10 mg/dL (2.5-4.5) L D 12/13/21 02: Magnesium 2.10 mg/dL (1.7-2.3) 12/13/21 02: Total Bilirubin 0.50 mg/dL (0.1-1.2) 12/12/21 23:03 AST 7 units/L (5-40) 12/12/21 23:03 ALT 9 units/L (7-56) 12/12/21 23:03 Alkaline Phosphatase 81 units/L (35-129) 12/12/21 23:03 Total Creatine Kinase 25 units/L (30-135) L 12/12/21 23:03 Troponin T < 0.010 ng/mL (0.00-0.029) 12/12/21 23:03 Total Protein 9.2 g/dL (6.3-8.2) H 12/12/21 23:03 Albumin 4.6 g/dL (3.9-5) 12/12/21 23:03 Albumin/Globulin Ratio 1.0 % 12/12/21 23:03 HCG, Quant < 2 mIU/mL (0-4) 12/12/21 23:03 Urine Color Yellow (Yellow) 12/14/21 00:20 Urine Turbidity Slightly-cloudy (Clear) 12/14/21 00:20 Urine pH 6.0 (5.0-7.0) 12/14/21 00:20 Ur Specific [place] 1.014 (1.003-1.030) 12/14/21 00:20 Urine Protein 30 mg/dl mg/dL (Negative) 12/14/21 00:20 Urine Glucose (UA) 50 mg/dL (Negative) 12/14/21 00:20 Urine Ketones 20 mg/dL (Negative) 12/14/21 00:20 Urine Blood Sm (Negative) 12/14/21 00:20 Urine Nitrite Neg (Negative) 12/14/21 00:20 Urine Bilirubin Neg (Negative) 12/14/21 00:20 Urine Urobilinogen < 2.0 mg/dL (<2.0) 12/14/21 00:20 Ur Leukocyte Esterase Neg (Negative) 12/14/21 00:20 Urine WBC (Auto) 2.0 /HPF (0.0-6.0) 12/14/21 00:20 Urine RBC (Auto) 6.0 /HPF (0.0-6.0) 12/14/21 00:20 U Epithel Cells (Auto) 6.0 /HPF (0-13.0) 12/14/21 00:20 Urine Bacteria (Auto) 1+ /HPF (Negative) 12/14/21 00:20 Urine Mucus 1+ /HPF 12/14/21 00:20 Urine Yeast (Budding) Few /HPF 12/14/21 00:20 Nguyen/IV: Voiding Method Toilet Active Medications - Current Medications Current Medications: Generic Name Dose Route Start Last Admin Trade Name Freq PRN Reason Stop Dose Admin Acetaminophen 650 mg 12/13/21 02:05 Acetaminophen 325 Mg Tab PO Q4H PRN Pain MILD(1-3)/Fever >100.5/GASTELUM Albuterol 2.5 mg 12/13/21 02:05 Albuterol 2.5 Mg/3 Ml Nebu IH Q3HRT PRN Shortness Of Breath Dextrose 0 ml 12/13/21 02:14 Dextrose 10% *Hypoglycemia IV PRN PRN Hypoglycemia Dextrose 50 ml 12/14/21 08:30 Dextrose 50% In Water (25gm) 50 Ml Syringe IV Q30MIN PRN Hypoglycemia Protocol Enoxaparin Sodium 40 mg 12/13/21 22:00 12/13/21 21:43 Enoxaparin 40 Mg/0.4 Ml Inj SUB-Q 40 mg QDAY@2200 DONA Administration Protocol Famotidine 20 mg 12/14/21 10:00 Famotidine 20 Mg Tab PO BID DONA Insulin Glargine 20 units 12/14/21 22:00 Insulin Glargine 100 Units/Ml SUB-Q QHS DONA Insulin Glargine 10 units 12/14/21 08:30 Insulin Glargine 100 Units/Ml SUB-Q 12/14/21 08:31 ONCE ONE Insulin Human Lispro 0 unit 12/14/21 08:00 Insulin Lispro 100 Unit/Ml SUB-Q Q6HR [facility] Protocol Ondansetron HCl 4 mg 12/13/21 02:05 12/13/21 21:42 Ondansetron 4 Mg/2 Ml Inj IV 4 mg Q8H PRN Administration Nausea And Vomiting Sodium Chloride 10 ml 12/13/21 10:00 12/13/21 21:44 Sodium Chloride 0.9% 10 Ml Flush Syringe IV 10 ml BID DONA Administration Sodium Chloride 10 ml 12/13/21 02:05 Sodium Chloride 0.9% 10 Ml Flush Syringe IV PRN PRN LINE FLUSH <BETI LOCKWOOD - Last Filed: 12/14/21 15:46> Assessment and Plan Assessment and plan: I saw and evaluated the patient. I agree with the findings and the plan of care as documented in the Nurse Practitioner's~note, with the following corrections and additions. Hospitalist Physical - Constitutional Vitals: Temp Pulse Resp BP Pulse Ox 97.9 F 93 H 20 132/63 99 12/14/21 12:08 12/14/21 12:08 12/14/21 12:33 12/14/21 12:08 12/14/21 12:08 HEART Score - HEART Score Troponin: Troponin T < 0.010 ng/mL (0.00-0.029) 12/12/21 23:03 Results - Labs CBC & Chem 7: 12/14/21 11:19 12/14/21 10:14 Labs: Laboratory Last Values WBC 13.2 K/mm3 (4.5-11.0) H 12/14/21 11:19 RBC 4.81 M/mm3 (3.65-5.03) 12/14/21 11:19 Hgb 12.2 gm/dl (10.1-14.3) 12/14/21 11:19 Hct 39.0 % (30.3-42.9) 12/14/21 11:19 MCV 81 fl (79-97) 12/14/21 11:19 MCH 25 pg (28-32) L 12/14/21 11:19 MCHC 31 % (30-34) 12/14/21 11:19 RDW 16.2 % (13.2-15.2) H 12/14/21 11:19 Plt Count 595 K/mm3 (140-440) H 12/14/21 11:19 Lymph % (Auto) Job Coach/Job Developer 12/14/21 11:19 [place] % (Auto) Job Coach/Job Developer 12/14/21 11:19 Eos % (Auto) Job Coach/Job Developer 12/14/21 11:19 Baso % (Auto) Job Coach/Job Developer 12/14/21 11:19 Lymph # (Auto) Job Coach/Job Developer 12/14/21 11:19 [place] # (Auto) Job Coach/Job Developer 12/14/21 11:19 Eos # (Auto) Job Coach/Job Developer 12/14/21 11:19 Baso # (Auto) Job Coach/Job Developer 12/14/21 11:19 Add Manual Diff Complete 12/14/21 11:19 Total Counted 100 12/14/21 11:19 Seg Neutrophils % Job Coach/Job Developer 12/14/21 11:19 Seg Neuts % (Manual) 75.0 % (40.0-70.0) H 12/14/21 11:19 Band Neutrophils % 1.0 % 12/14/21 11:19 Lymphocytes % (Manual) 14.0 % (13.4-35.0) 12/14/21 11:19 Reactive Lymphs % (Man) 0 % 12/14/21 11:19 Monocytes % (Manual) 9.0 % (0.0-7.3) H 12/14/21 11:19 Eosinophils % (Manual) 1.0 % (0.0-4.3) 12/14/21 11:19 Basophils % (Manual) 0 % (0.0-1.8) 12/14/21 11:19 Metamyelocytes % 0 % 12/14/21 11:19 Myelocytes % 0 % 12/14/21 11:19 Promyelocytes % 0 % 12/14/21 11:19 Blast Cells % 0 % 12/14/21 11:19 Nucleated RBC % Not Reportable 12/14/21 11:19 Seg Neutrophils # Job Coach/Job Developer 12/14/21 11:19 Seg Neutrophils # Man 9.9 K/mm3 (1.8-7.7) H 12/14/21 11:19 Band Neutrophils # 0.1 K/mm3 12/14/21 11:19 Lymphocytes # (Manual) 1.8 K/mm3 (1.2-5.4) 12/14/21 11:19 Abs React Lymphs (Man) 0.0 K/mm3 12/14/21 11:19 Monocytes # (Manual) 1.2 K/mm3 (0.0-0.8) H 12/14/21 11:19 Eosinophils # (Manual) 0.1 K/mm3 (0.0-0.4) 12/14/21 11:19 Basophils # (Manual) 0.0 K/mm3 (0.0-0.1) 12/14/21 11:19 Metamyelocytes # 0.0 K/mm3 12/14/21 11:19 Myelocytes # 0.0 K/mm3 12/14/21 11:19 Promyelocytes # 0.0 K/mm3 12/14/21 11:19 Blast Cells # 0.0 K/mm3 12/14/21 11:19 WBC Morphology Not Reportable 12/14/21 11:19 Hypersegmented Neuts Not Reportable 12/14/21 11:19 Hyposegmented Neuts Not Reportable 12/14/21 11:19 Hypogranular Neuts Not Reportable 12/14/21 11:19 Smudge Cells Not Reportable 12/14/21 11:19 Toxic Granulation Not Reportable 12/14/21 11:19 Toxic Vacuolation Not Reportable 12/14/21 11:19 Dohle Bodies Not Reportable 12/14/21 11:19 Pelger-Huet Anomaly Not Reportable 12/14/21 11:19 Sandra Rods Not Reportable 12/14/21 11:19 Platelet Estimate Consistent w auto 12/14/21 11:19 Clumped Platelets Not Reportable 12/14/21 11:19 Plt Clumps, EDTA Not Reportable 12/14/21 11:19 Large Platelets Not Reportable 12/14/21 11:19 Giant Platelets Not Reportable 12/14/21 11:19 Platelet Satelliting Not Reportable 12/14/21 11:19 Plt Morphology Comment Not Reportable 12/14/21 11:19 RBC Morphology Not Reportable 12/14/21 11:19 Dimorphic RBCs Not Reportable 12/14/21 11:19 Polychromasia Not Reportable 12/14/21 11:19 Hypochromasia Few 12/14/21 11:19 Poikilocytosis Not Reportable 12/14/21 11:19 Anisocytosis Not Reportable 12/14/21 11:19 Microcytosis Not Reportable 12/14/21 11:19 Macrocytosis Not Reportable 12/14/21 11:19 Spherocytes Not Reportable 12/14/21 11:19 Pappenheimer Bodies Not Reportable 12/14/21 11:19 Sickle Cells Not Reportable 12/14/21 11:19 Target Cells Not Reportable 12/14/21 11:19 Tear Drop Cells Not Reportable 12/14/21 11:19 Ovalocytes Not Reportable 12/14/21 11:19 Helmet Cells Not Reportable 12/14/21 11:19 [place] Bodies Not Reportable 12/14/21 11:19 [place] Rings Not Reportable 12/14/21 11:19 [place] Cells Not Reportable 12/14/21 11:19 Bite Cells Not Reportable 12/14/21 11:19 Crenated Cell Not Reportable 12/14/21 11:19 Elliptocytes Not Reportable 12/14/21 11:19 Acanthocytes (Spur) Not Reportable 12/14/21 11:19 Rouleaux Not Reportable 12/14/21 11:19 Hemoglobin C Crystals Not Reportable 12/14/21 11:19 Schistocytes Not Reportable 12/14/21 11:19 Malaria parasites Not Reportable 12/14/21 11:19 Anup Bodies Not Reportable 12/14/21 11:19 Hem Pathologist Commnt No 12/14/21 11:19 PT 14.3 Sec. (12.2-14.9) 12/13/21 00:15 INR 1.00 (0.87-1.13) 12/13/21 00:15 VBG pH 7.423 (7.320-7.420) H 12/12/21 23:03 Sodium 136 mmol/L (137-145) L 12/14/21 10:14 Potassium 3.1 mmol/L (3.6-5.0) L 12/14/21 10:14 Chloride 98.1 mmol/L (98-107) 12/14/21 10:14 Carbon Dioxide 22 mmol/L (22-30) 12/14/21 10:14 Anion Gap 19 mmol/L 12/14/21 10:14 BUN 5 mg/dL (7-17) L 12/14/21 10:14 Creatinine 0.5 mg/dL (0.6-1.2) L 12/14/21 10:14 Estimated GFR > 60 ml/min 12/14/21 10:14 BUN/Creatinine Ratio 10 % 12/14/21 10:14 Glucose 218 mg/dL (65-100) H 12/14/21 10:14 POC Glucose 259 mg/dL (70-105) H 12/14/21 11:28 Hemoglobin A1c 12.2 % (4-6) H 12/12/21 23:03 Calcium 9.0 mg/dL (8.4-10.2) 12/14/21 10:14 Phosphorus 2.10 mg/dL (2.5-4.5) L D 12/13/21 02:27 Magnesium 1.70 mg/dL (1.7-2.3) 12/14/21 10:14 Total Bilirubin 0.50 mg/dL (0.1-1.2) 12/12/21 23:03 AST 7 units/L (5-40) 12/12/21 23:03 ALT 9 units/L (7-56) 12/12/21 23:03 Alkaline Phosphatase 81 units/L (35-129) 12/12/21 23:03 Total Creatine Kinase 25 units/L (30-135) L 12/12/21 23:03 Troponin T < 0.010 ng/mL (0.00-0.029) 12/12/21 23:03 Total Protein 9.2 g/dL (6.3-8.2) H 12/12/21 23:03 Albumin 4.6 g/dL (3.9-5) 12/12/21 23:03 Albumin/Globulin Ratio 1.0 % 12/12/21 23:03 HCG, Quant < 2 mIU/mL (0-4) 12/12/21 23:03 Urine Color Yellow (Yellow) 12/14/21 00:20 Urine Turbidity Slightly-cloudy (Clear) 12/14/21 00:20 Urine pH 6.0 (5.0-7.0) 12/14/21 00:20 Ur Specific [place] 1.014 (1.003-1.030) 12/14/21 00:20 Urine Protein 30 mg/dl mg/dL (Negative) 12/14/21 00:20 Urine Glucose (UA) 50 mg/dL (Negative) 12/14/21 00:20 Urine Ketones 20 mg/dL (Negative) 12/14/21 00:20 Urine Blood Sm (Negative) 12/14/21 00:20 Urine Nitrite Neg (Negative) 12/14/21 00:20 Urine Bilirubin Neg (Negative) 12/14/21 00:20 Urine Urobilinogen < 2.0 mg/dL (<2.0) 12/14/21 00:20 Ur Leukocyte Esterase Neg (Negative) 12/14/21 00:20 Urine WBC (Auto) 2.0 /HPF (0.0-6.0) 12/14/21 00:20 Urine RBC (Auto) 6.0 /HPF (0.0-6.0) 12/14/21 00:20 U Epithel Cells (Auto) 6.0 /HPF (0-13.0) 12/14/21 00:20 Urine Bacteria (Auto) 1+ /HPF (Negative) 12/14/21 00:20 Urine Mucus 1+ /HPF 12/14/21 00:20 Urine Yeast (Budding) Few /HPF 12/14/21 00:20 Nguyen/IV: Voiding Method Toilet Active Medications - Current Medications Current Medications: Generic Name Dose Route Start Last Admin Trade Name Freq PRN Reason Stop Dose Admin Acetaminophen 650 mg 12/13/21 02:05 Acetaminophen 325 Mg Tab PO Q4H PRN Pain MILD(1-3)/Fever >100.5/GASTELUM Dextrose 0 ml 12/13/21 02:14 Dextrose 10% *Hypoglycemia IV PRN PRN Hypoglycemia Docusate Sodium 100 mg 12/14/21 11:00 12/14/21 11:49 Docusate Sodium 100 Mg Cap PO 100 mg BID [facility] Administration Enoxaparin Sodium 40 mg 12/13/21 22:00 12/13/21 21:43 Enoxaparin 40 Mg/0.4 Ml Inj SUB-Q 40 mg QDAY@2200 [facility] Administration Protocol Famotidine 20 mg 12/14/21 10:00 12/14/21 09:29 Famotidine 20 Mg Tab PO 20 mg BID [facility] Administration Insulin Glargine 20 units 12/14/21 22:00 Insulin Glargine 100 Units/Ml SUB-Q QHS DONA Insulin Human Lispro 0 unit 12/14/21 11:30 12/14/21 11:50 Insulin Lispro 100 Unit/Ml SUB-Q 6 unit ACHS [facility] Administration Protocol Ondansetron HCl 4 mg 12/13/21 02:05 12/13/21 21:42 Ondansetron 4 Mg/2 Ml Inj IV 4 mg Q8H PRN Administration Nausea And Vomiting Oxycodone HCl 5 mg 12/14/21 11:00 12/14/21 11:33 Oxycodone 5 Mg Tab PO 5 mg Q8H PRN Administration Pain, Moderate (4-6) Sodium Chloride 10 ml 12/13/21 10:00 12/14/21 09:31 Sodium Chloride 0.9% 10 Ml Flush Syringe IV 10 ml BID DONA Administration Sodium Chloride 10 ml 12/13/21 02:05 Sodium Chloride 0.9% 10 Ml Flush Syringe IV PRN PRN LINE FLUSH
[2021-12-14] MEDS ORDERED: INSULIN GLARGINE 100 UNITS/ML SUB-Q SCH ×3 (09:00→22:00)
[2021-12-14] MEDS: POTASSIUM CHLORIDE ER 20 MEQ TAB PO SCH ×2 (09:29→14:04)
[2021-12-14] MEDS: FAMOTIDINE 20 MG TAB PO SCH ×2 (09:29→22:30)
--- NOTE | 2021-12-14 10:41 | Progress Note ---
Assessment and Plan 46 y/o female with DKA and abnormal CXR 12/14/21: Agree with transition to long acting insulin. Feed patient. Will need FSBS QAC and HS. Sliding scale insulin. More diabetic education. Agree with transfer. Will need to follow up in office with either pulmonary or PCP to discuss need for CT and if patient in agreement for this. 1. Continue insulin drip until Anion Gap closes. Currently 18. Hopeful at next check, she will be within range to eat 2. Once gap closed, calculate long acting insulin requirements, vs weight based therapy and administer, then turn drip off 2 hours post administration of insulin 3. Continue volume resuscitation as patient is dehydrated 4. long discussion at bedside about need for medical therapy as opposed to solely holistic care. patient in agreement 5. CT of chest can be obtained as outpatient, no evidence of acute lung disease and if abx therapy is for this, suggest stopping Will continue to follow CCT 31 minutes. Subjective Date of service: 12/14/21 Interval history: Anion Gap now closed. Started on long acting insulin this morning. Transfer orders are in. Remains stable on room air. Objective - Constitutional Vitals: Vital Signs - 12hr 12/13/21 12/13/21 12/14/21 23:00 23:34 00:00 Temperature 98.1 F Pulse Rate 80 72 76 Respiratory 11 L 12 10 L Rate Blood Pressure 131/61 124/70 124/70 O2 Sat by Pulse 94 96 94 Oximetry 12/14/21 12/14/21 12/14/21 01:00 02:00 03:00 Temperature Pulse Rate 71 94 H 81 Respiratory 12 20 16 Rate Blood Pressure 124/77 124/77 124/77 O2 Sat by Pulse 98 88 96 Oximetry 12/14/21 12/14/21 12/14/21 04:00 05:00 06:00 Temperature 98.2 F Pulse Rate 75 80 76 Respiratory 12 11 L 10 L Rate Blood Pressure 129/64 120/63 121/57 O2 Sat by Pulse 98 98 98 Oximetry 12/14/21 12/14/21 12/14/21 07:00 08:00 09:00 Temperature Pulse Rate 88 88 90 Respiratory 13 15 10 L Rate Blood Pressure 140/32 140/32 148/52 O2 Sat by Pulse 100 100 100 Oximetry - Labs CBC & Chem 7: 12/12/21 23:03 12/14/21 02:29 Labs: Abnormal lab results 12/13/21 12/13/21 12/13/21 Range/Units 09:43 11:10 12:02 Sodium (137-145) mmol/L Potassium (3.6-5.0) mmol/L Chloride 96.7 L (98-107) mmol/L Carbon Dioxide (22-30) mmol/L BUN (7-17) mg/dL Creatinine 0.5 L (0.6-1.2) mg/dL Glucose 186 H (65-100) mg/dL POC Glucose 171 H 212 H (70-105) mg/dL 12/13/21 12/13/21 12/13/21 Range/Units 13:06 15:57 16:19 Sodium (137-145) mmol/L Potassium 3.5 L (3.6-5.0) mmol/L Chloride (98-107) mmol/L Carbon Dioxide 21 L (22-30) mmol/L BUN 6 L (7-17) mg/dL Creatinine 0.5 L (0.6-1.2) mg/dL Glucose 123 H (65-100) mg/dL POC Glucose 111 H 114 H (70-105) mg/dL 12/13/21 12/13/21 12/13/21 Range/Units 16:30 18:02 18:58 Sodium (137-145) mmol/L Potassium (3.6-5.0) mmol/L Chloride (98-107) mmol/L Carbon Dioxide (22-30) mmol/L BUN (7-17) mg/dL Creatinine (0.6-1.2) mg/dL Glucose (65-100) mg/dL POC Glucose 118 H 129 H 138 H (70-105) mg/dL 12/13/21 12/13/21 12/13/21 Range/Units 19:07 20:11 21:12 Sodium (137-145) mmol/L Potassium 3.2 L (3.6-5.0) mmol/L Chloride (98-107) mmol/L Carbon Dioxide (22-30) mmol/L BUN (7-17) mg/dL Creatinine (0.6-1.2) mg/dL Glucose (65-100) mg/dL POC Glucose 140 H 137 H (70-105) mg/dL 12/13/21 12/13/21 12/13/21 Range/Units 22:01 23:03 23:11 Sodium 135 L (137-145) mmol/L Potassium 3.2 L (3.6-5.0) mmol/L Chloride (98-107) mmol/L Carbon Dioxide 20 L (22-30) mmol/L BUN 6 L (7-17) mg/dL Creatinine 0.4 L (0.6-1.2) mg/dL Glucose 177 H (65-100) mg/dL POC Glucose 114 H 187 H (70-105) mg/dL 12/14/21 12/14/21 12/14/21 Range/Units 00:14 01:04 02:12 Sodium (137-145) mmol/L Potassium (3.6-5.0) mmol/L Chloride (98-107) mmol/L Carbon Dioxide (22-30) mmol/L BUN (7-17) mg/dL Creatinine (0.6-1.2) mg/dL Glucose (65-100) mg/dL POC Glucose 169 H 118 H 117 H (70-105) mg/dL 12/14/21 12/14/21 12/14/21 Range/Units 02:29 03:05 04:02 Sodium 135 L (137-145) mmol/L Potassium 3.2 L (3.6-5.0) mmol/L Chloride (98-107) mmol/L Carbon Dioxide (22-30) mmol/L BUN 5 L (7-17) mg/dL Creatinine 0.5 L (0.6-1.2) mg/dL Glucose 112 H (65-100) mg/dL POC Glucose 124 H 133 H (70-105) mg/dL 12/14/21 12/14/21 12/14/21 Range/Units 05:03 05:51 08:27 Sodium (137-145) mmol/L Potassium (3.6-5.0) mmol/L Chloride (98-107) mmol/L Carbon Dioxide (22-30) mmol/L BUN (7-17) mg/dL Creatinine (0.6-1.2) mg/dL Glucose (65-100) mg/dL POC Glucose 118 H 120 H 124 H (70-105) mg/dL Medications & Allergies - Medications Allergies/Adverse Reactions: Allergies naproxen Allergy (Verified 10/25/19 09:09) Vomiting pecan nut Allergy (Verified 10/25/19 09:09) Swelling Penicillins Allergy (Verified 10/25/19 09:09) Unknown Active Medications: Generic Name Dose Route Start Last Admin Trade Name Freq PRN Reason Stop Dose Admin Acetaminophen 650 mg 12/13/21 02:05 Acetaminophen 325 Mg Tab PO Q4H PRN Pain MILD(1-3)/Fever >100.5/GASTELUM Albuterol 2.5 mg 12/13/21 02:05 Albuterol 2.5 Mg/3 Ml Nebu IH Q3HRT PRN Shortness Of Breath Dextrose 0 ml 12/13/21 02:14 Dextrose 10% *Hypoglycemia IV PRN PRN Hypoglycemia Enoxaparin Sodium 40 mg 12/13/21 22:00 12/13/21 21:43 Enoxaparin 40 Mg/0.4 Ml Inj SUB-Q 40 mg QDAY@2200 DONA Administration Protocol Famotidine 20 mg 12/14/21 10:00 12/14/21 09:29 Famotidine 20 Mg Tab PO 20 mg BID DONA Administration Insulin Glargine 20 units 12/14/21 22:00 Insulin Glargine 100 Units/Ml SUB-Q QHS DONA Insulin Glargine 10 units 12/14/21 09:00 12/14/21 09:30 Insulin Glargine 100 Units/Ml SUB-Q 12/14/21 11:00 10 units ONCE@0900 DONA Administration Insulin Human Lispro 0 unit 12/14/21 11:30 Insulin Lispro 100 Unit/Ml SUB-Q ACHS [facility] Protocol Ondansetron HCl 4 mg 12/13/21 02:05 12/13/21 21:42 Ondansetron 4 Mg/2 Ml Inj IV 4 mg Q8H PRN Administration Nausea And Vomiting Potassium Chloride 40 meq 12/14/21 10:00 12/14/21 09:29 Potassium Chloride Er 20 Meq Tab PO 12/14/21 14:01 40 meq Q4HR DONA Administration Sodium Chloride 10 ml 12/13/21 10:00 12/14/21 09:31 Sodium Chloride 0.9% 10 Ml Flush Syringe IV 10 ml BID DONA Administration Sodium Chloride 10 ml 12/13/21 02:05 Sodium Chloride 0.9% 10 Ml Flush Syringe IV PRN PRN LINE FLUSH HEART Score - HEART Score Troponin: Troponin T < 0.010 ng/mL (0.00-0.029) 12/12/21 23:03
--- NOTE | 2021-12-14 11:01 | Event Note ---
Date: 12/14/21 I called Nevinjoaquin Barcenas at [phone] for an update on her mothers care and being transferrred from [facility]. I left a voicemail requesting call back at [phone].
[2021-12-14 11:25] LABS: Blood Urea Nitrogen 5 mg/dL (7-17); Hemolysis Index 1
[2021-12-14 11:29] LABS: BUN/Creatinine Ratio 10
[2021-12-14] MEDS: oxyCODONE 5 MG TAB PO PRN (11:33)
[2021-12-14 11:49] LABS: Hemoglobin 12.2 gm/dl (10.1-14.3); Mean Corpuscular HGB Conc 31 % (30-34); Mean Corpuscular Volume 81 fl (79-97); Platelet Count 595 K/mm3 (140-440); Red Blood Count 4.81 M/mm3 (3.65-5.03); Red Cell Distribution Width 16.2 % (13.2-15.2)
[2021-12-14] MEDS: DOCUSATE SODIUM 100 MG CAP PO SCH ×2 (11:49→22:09)
[2021-12-14] MEDS: INSULIN LISPRO 100 UNIT/ML SUB-Q SCH ×3 (11:50→23:27)
[2021-12-14] MEDS ORDERED: MAGNESIUM SULFATE 2 GM/50 ML BAG IV ONE (12:30)
[2021-12-14 13:20] LABS: Band Neutrophils # (Manual) 0.1 K/mm3; Basophils % (Manual) 0 % (0.0-1.8); Total Cells Counted 100
[2021-12-14 13:21] LABS: Hypochromasia Few; Platelet Estimate Consistent w Auto
[2021-12-14] MEDS: ENOXAPARIN 40 MG/0.4 ML INJ SUB-Q SCH (22:09)
[2021-12-15] MEDS: oxyCODONE 5 MG TAB PO PRN ×2 (01:00→16:41)
[2021-12-15 05:06] LABS: Hematocrit 32.5 % (30.3-42.9); Hemoglobin 11.4 gm/dl (10.1-14.3); Mean Corpuscular HGB Conc 35 % (30-34); Mean Corpuscular Volume 79 fl (79-97); Platelet Count 504 K/mm3 (140-440); Red Blood Count 4.12 M/mm3 (3.65-5.03); Red Cell Distribution Width 15.6 % (13.2-15.2)
[2021-12-15 05:14] LABS: Blood Urea Nitrogen 7 mg/dL (7-17); Calcium 8.3 mg/dL (8.4-10.2); Hemolysis Index 9
[2021-12-15 05:19] LABS: BUN/Creatinine Ratio 18
[2021-12-15] MEDS: INSULIN LISPRO 100 UNIT/ML SUB-Q SCH ×3 (09:14→17:53)
[2021-12-15] MEDS: DOCUSATE SODIUM 100 MG CAP PO SCH (09:15)
[2021-12-15] MEDS: FAMOTIDINE 20 MG TAB PO SCH (09:15)
[2021-12-15] MEDS: ONDANSETRON 4 MG/2 ML INJ IV PRN (12:51)
[2021-12-15 14:40] VITALS: BP 151/77
--- NOTE | 2021-12-15 18:21 | Discharge Summary ---
Providers - Providers Date of Admission: 12/13/21 02:05 Attending physician: MCKAYLA CALDERON MD 12/13/21 02:05 Consult to Dietitian/Nutrition [CONS] Routine Physician Instructions: Reason For Exam: DKA Reason for Consult: Nutrition Recommendations Reason for Consult: Diet education 12/15/21 15:21 Physical Therapy Evaluation and Treat [CONS] Stat Comment: Eval and Treat Reason For Exam: Physical Therapy Primary care physician: YFN REYES Hospitalization Condition: Stable Hospital course: 46-year-old female with history of type 2 diabetes mellitus more than 10 years, hypertension, high cholesterol, recent hemoglobin A1c of 11, down from 13. Also reports 20 pound weight loss. Presents to the ER today with a complaint of feeling dehydrated, lethargic, and weak, associate with nausea and vomiting. Denies physical pain. No dysuria. No cough. Positive heartburn. Reports that she does not have a formal diagnosis of gastroparesis that she is aware of. Reports that she last felt like this a few years ago. In the emergency room patient is found to have blood glucose of 446 bicarb of 17 and anion gap of 30 BUN 16 creatinine 0.7, WBC of 16.1. Chest x-ray showed no pneumonia. UA showed no UTI. Patient was admitted to ICU for DKA and treated aggressively with IV insulin and IV fluids as per protocol. Repeat hemoglobin A1c was 12.2. Patient was discharged to home with resolution of DKA and stable on oral diet and basal bolus insulin therapy. Leukocytosis resolved without antibiotic therapy. Patient was strongly encouraged to watch diet and to be compliant with her insulin therapy as well as follow-up doctors visits. Patient stated that her home medications include Lantus 30 units, short-acting insulin 8 to 10 units before each meal, glipizide 10 units daily and Metformin twice daily. Patient was advised to continue all her meds while monitoring her blood glucose levels before each meal and bedtime. She was advised to see her PCP in 3 to 5 days for close follow-up on glycemic control. She was given Reglan to be used as needed for nausea, she may have a diabetic gastroparesis. Discharge diagnoses Diabetic ketoacidosis Type II diabetic ulcer Poor glycemic control with A1c to 12.2 Leukocytosis likely reactive, resolved Intermittent nausea may have diabetic gastroparesis. Disposition: HOME / SELF CARE / HOMELESS Final Discharge Diagnosis (Prints w/discharge instructions): Diabetic ketoacidosis. Type II diabetic ulcer. Poor glycemic control with A1c to 12.2. Leukocytosis likely reactive, resolved. Intermittent nausea may have diabetic gastroparesis. Time spent for discharge: 35 minutes Core Measure Documentation - Palliative Care Palliative Care/ Comfort Measures: Not Applicable - Core Measures Any of the following diagnoses?: none Exam - Constitutional Vitals: Temp Pulse Resp BP Pulse Ox 98.2 F 95 H 16 151/77 100 12/15/21 12:07 12/15/21 14:40 12/15/21 14:40 12/15/21 14:40 12/15/21 14:40 General appearance: Present: no acute distress, obese - EENT Eyes: Present: PERRL, EOM intact ENT: clear oral mucosa - Neck Neck: Present: supple - Respiratory Respiratory effort: normal Respiratory: bilateral: CTA - Extremities Extremities: No edema - Abdominal General gastrointestinal: Present: soft, non-tender, non-distended - Musculoskeletal Musculoskeletal: strength equal bilaterally - Psychiatric Psychiatric: appropriate mood/affect - Neurologic Neurologic: moves all extremities Plan Activity: advance as tolerated Diet: diabetic (1800 cals) Additional Instructions: Check your blood glucose before each meal. Your sugar control is very poor, hemoglobin A1c 11. Have your family doctor to control your blood glucose well Follow up with: YFN REYES MD [Primary Care Provider] - 3-5 Days Prescriptions: Insulin Glargine [Lantus VIAL] 30 units SUB-Q QHS #1 bottle Metoclopramide [Reglan] 10 mg PO Q8H PRN #30 tab PRN Reason: Nausea
[2021-12-16] MEDS ORDERED: INSULIN LISPRO 100 UNIT/ML SUB-Q SCH (07:30)
[2021-12-16] MEDS ORDERED: glipiZIDE 5 MG TAB PO SCH (08:00)
[2021-12-16] MEDS ORDERED: metFORMIN 500 MG TAB PO SCH (08:00)
== END 2021-12-15 19:57 | disposition home health service (06) | DRG 637 ==
LOC: ED 20:51 → CC1 12-13 02:05 → 3A 12-14 10:19
PROVIDERS: ADMIT Hospitalist; ATTEND Internal Medicine
DX: E11.10 Type 2 diabetes mellitus with ketoacidosis without coma (principal); G93.41 Metabolic encephalopathy; R65.10 Systemic inflammatory response syndrome (SIRS) of non-infectious origin without acute organ dysfunction; E87.1 Hypo-osmolality and hyponatremia; E78.00 Pure hypercholesterolemia, unspecified; F17.200 Nicotine dependence, unspecified, uncomplicated; E78.5 Hyperlipidemia, unspecified; E11.622 Type 2 diabetes mellitus with other skin ulcer; E87.6 Hypokalemia; E87.8 Other disorders of electrolyte and fluid balance, not elsewhere classified; E83.39 Other disorders of phosphorus metabolism; E66.9 Obesity, unspecified; Z68.30 Body mass index [BMI] 30.0-30.9, adult; E11.43 Type 2 diabetes mellitus with diabetic autonomic (poly)neuropathy; K31.84 Gastroparesis; Z90.49 Acquired absence of other specified parts of digestive tract; Z88.0 Allergy status to penicillin; Z88.8 Allergy status to other drugs, medicaments and biological substances; Z91.010 Allergy to peanuts
CPT/HCPCS: 36415; 71045; 80048; 80053; 81001; 82550; 82805; 82962; 83036; 83735; 84100; 84132; 84484; 84702; 85007; 85025; 85027; 85610; 93005; 93010; 94640; 99406; G0378; J3480; J3490; J7510; Q9967; C9113; J0696; J1170; J1644; J1650; J1815; J2270; J2405; J2765; J3475; J7040; J7120

== ENCOUNTER 2022-07-10 10:27 | Emergency (ER) | payer MEDICARE ==
[2022-07-10 11:11] VITALS: BP 173/95
[2022-07-10 12:32] LABS: Hemoglobin 12.9 gm/dl (10.1-14.3); Mean Corpuscular HGB Conc 32 % (30-34); Mean Corpuscular Volume 79 fl (79-97); Platelet Count 726 K/mm3 (140-440); Red Blood Count 5.05 M/mm3 (3.65-5.03); Red Cell Distribution Width 15.9 % (13.2-15.2)
[2022-07-10 12:36] LABS: Alanine Aminotransferase 10 units/L (7-56); Albumin 4.9 g/dL (3.9-5); Blood Urea Nitrogen 11 mg/dL (7-17); Calcium 10.3 mg/dL (8.4-10.2); Hemolysis Index 1
[2022-07-10 12:50] LABS: BUN/Creatinine Ratio 18
[2022-07-10 20:33] LABS: Basophils % (Manual) 0 % (0.0-1.8); Eosinophils % (Manual) 0 % (0.0-4.3); Hypochromasia 1+; Platelet Estimate Consistent w Auto; Total Cells Counted 100
== END 2022-07-10 12:27 | disposition left against medical advice (07) ==
LOC: ED 10:27
DX: R11.2 Nausea with vomiting, unspecified (principal); E86.0 Dehydration; Z53.21 Procedure and treatment not carried out due to patient leaving prior to being seen by health care provider
CPT/HCPCS: 36415; 80053; 83690; 84484; 85007; 85025